=== PATIENT | male | born 1950 | race Hispanic/Latino ===

== ENCOUNTER → 2024-10-13 | Outpatient (REF) | payer MEDICARE, OTHER ==
[~2024-10-13] MED LIST: ASPIRIN81 MG PO; BENICAR20 MG PO; CALCIUM 500 MG1 EAC1 PO; CELEBREX200 MG PO; CINNAMON500 MG PO; CLONIDINE HCL0.2 MG PO; CYCLOBENZAPRINE10 MG PO; FLOMAX0.4 MG PO; FUROSEMIDE40 MG PO; GLYBURIDE-METF1 EAC1 PO; HYDRALAZINE HC100 MG PO; IOPAMIDOL 370 MG/ML 100 ML INFUS..BTL INJ ONE; KLOR-CON 1010 MEQ PO; LOTRIMIN AF12 GM TOP; LYCOPENE10 MG PO; MAGNESIUM OXID400 MG PO; MULTIPLE VITAM1 EAC2 PO; NITROSTAT0.4 MG SL; NYSTATIN-TRIAMC15 GM TOP; SAW PALMETTO 41 EACH PO; SODIUM CHLORIDE 0.9% 250ML 250 ML ONE; TRAZODONE HCL50 MG PO; VIT C PO
[2024-10-13 09:02] LABS: CREATININE, SERUM 0.81 mg/dL (0.72-1.25)
== END ==
LOC: CT 05:51
PROVIDERS: ATTEND Urology
DX: R31.21 Asymptomatic microscopic hematuria (principal)
CPT/HCPCS: 36415; 74178; 82565; 84520; J7050; Q9967